=== PATIENT | male | born 1965 | race Caucasian/White ===

== ENCOUNTER → 2023-12-29 14:33 | Outpatient (BNVA) | payer OTHER, SELFPAY | PROVIDERS: PCP Family Medicine; Referring Provider Family Medicine; Visit Provider Surgery | DX: Z12.11 Encounter for screening for malignant neoplasm of colon (principal) | CPT/HCPCS: 99204 ==

== ENCOUNTER 2024-01-25 10:05 | Day surgery (SDC) | payer OTHER, SELFPAY ==
--- NOTE | 2024-01-25 10:21 | W.PM.OPSUD ---
Surgery/Procedure H&P Update DATE OF PROCEDURE: January 25, 2024 DATE H&P PERFORMED: 11/28/23 H&P UPDATE INFORMATION: I have reviewed H&P completed within last 30 days, I have examined patient prior to procedure, No changes to prior documentation and H&P is in [facility] EMR on date indicated PLANNED PROCEDURE: Operation Date: 01/25/24 11:20 Proposed Procedures p Colonoscopy 38112, G0105, Z12.11(Not Applicable) - Joe Hercules MD
[2024-01-25] MEDS: sodium chloride 0.9% 1,000 ML 30 ML IV (10:32)
[2024-01-25 10:42] VITALS: BMI 35.4
[2024-01-25 10:44] VITALS: BP 151/104; PULSE 128; RESP 18; TEMP 36.2; O2SAT 98
[2024-01-25 10:48] LABS: Glucose Point of Care 175 mg/dL (70-110)
[2024-01-25 11:43] VITALS: BP 112/68; PULSE 102; RESP 20; TEMP 36.1; O2SAT 93
[2024-01-25 11:50] VITALS: BP 139/104; PULSE 109; RESP 20; O2SAT 99
[2024-01-25 12:00] VITALS: BP 157/106; PULSE 107; RESP 20; O2SAT 99
--- NOTE | 2024-01-25 12:20 | ANE.PACU2 ---
Inpatient post-anesthesia follow up: Airway intact: Yes Vital signs: Temperature 97.0 F Pulse Rate 107 Respiratory Rate 20 Blood Pressure 157/106 Pulse Oximetry 99 Oxygen Delivery Me thod Room Air Oxygen Flow Rate Fraction of Inspir ed Oxygen Hydration adequate: Yes Nausea and vomiting: No Pain level: 1 Mental status: Baseline
== END 2024-01-25 12:22 | disposition home or self-care (01) ==
PROVIDERS: PCP Family Medicine; Visit Provider Surgery
PROC: 0DJD8ZZ Inspection of Lower Intestinal Tract, Via Natural or Artificial Opening Endoscopic (ICD-10-PCS; CPT 45378; principal; 2024-01-25 11:20)
DX: Z12.11 Encounter for screening for malignant neoplasm of colon (principal); K57.30 Diverticulosis of large intestine without perforation or abscess without bleeding
CPT/HCPCS: 36416; 45378; 82962; J2704; J7030

== ENCOUNTER 2025-06-22 14:52 | Outpatient (CLI) | payer OTHER, SELFPAY ==
--- NOTE | 2025-06-22 14:59 | CT_ITS ---
WS: [id number] LDCT LUNG CANCER SCREENING TECHNIQUE: Noncontrast CT of the chest with coronal and sagittal reformatted images. CLINICAL INFORMATION: NICOTINE DEPENDENCE COMPARISON: None. DLP: 139.31 mGy.cm DIvol: Mean CTDIvol: 3.20 (mGy) All CT scans at [facility] use at least one of these dose optimization techniques: automated exposure control; mA and/or kV adjustment per patient size (includes targeted exams where dose is matched to clinical indication); or iterative reconstruction. FINDINGS: No suspicious pulmonary parenchymal abnormalities. Tiny calcified granuloma LEFT upper lobe. Aortic calcification. Dense coronary calcification. Recommend cardiology consultation. No mediastinal or hilar lymphadenopathy. Small esophageal hiatal hernia. No axillary lymphadenopathy. Adrenal glands are normal. Hypertrophic changes thoracic spine. Mild thoracic curve and kyphosis. CT/CT lung screening [id number] IMPRESSION: Dense coronary calcification. Recommend cardiology consultation. LUNG-RADS: 2S-Benign Appearance or Behavior with Significant Findings FOLLOW UP: 12 Month: Continue annual screening with LDCT
== END 2025-06-22 14:53 | disposition home or self-care (01) ==
LOC: RAD 14:54
PROVIDERS: PCP Family Medicine; Visit Provider Family Medicine
DX: Z12.2 Encounter for screening for malignant neoplasm of respiratory organs (principal); F17.210 Nicotine dependence, cigarettes, uncomplicated; I35.8 Other nonrheumatic aortic valve disorders; K44.9 Diaphragmatic hernia without obstruction or gangrene; M40.204 Unspecified kyphosis, thoracic region; M43.8X4 Other specified deforming dorsopathies, thoracic region; M51.84 Other intervertebral disc disorders, thoracic region
CPT/HCPCS: 71271